=== PATIENT | female | born 1970 | race Asian ===

== ENCOUNTER 2021-06-10 07:40 | Day surgery (SDC) | payer OTHER ==
[~2021-06-10] VITALS: Ht 152.4 cm; Wt 44.0 kg
[2021-06-10] MEDS ORDERED: MIDAZOLAM 5 MG/5 ML VIAL ONE (11:08)
[2021-06-10] MEDS ORDERED: fentaNYL citrate 0.05 MG/ML VIAL ONE (11:08)
[2021-06-10] MEDS ORDERED: MIDAZOLAM 2 MG/2 ML VIAL IVP ONE (14:30)
== END 2021-06-10 11:59 | disposition home or self-care (01) ==
LOC: MMU 07:40 → MDS 07:40
PROVIDERS: ATTEND Internal Medicine Gastroenterology
DX: R10.13 Epigastric pain (principal); Z79.899 Other long term (current) drug therapy; Z20.822 Contact with and (suspected) exposure to COVID-19
CPT/HCPCS: 36415; 43235; 81025; 86677; 87426; J2250; J3010